=== PATIENT | female | born 1960 | race Caucasian/White ===

== ENCOUNTER → 2017-04-18 | Outpatient (CLI) | payer OTHER | LOC: MC.RAD 03-21 11:40 | DX: Z12.31 Encounter for screening mammogram for malignant neoplasm of breast (principal) ==

== ENCOUNTER → 2018-08-18 | Outpatient (CLI) | payer OTHER | LOC: MC.RAD 06-09 11:40 | DX: Z12.31 Encounter for screening mammogram for malignant neoplasm of breast (principal) ==

== ENCOUNTER → 2019-11-13 | Outpatient (CLI) | payer OTHER | LOC: MC.RAD 07:00 | DX: Z12.31 Encounter for screening mammogram for malignant neoplasm of breast (principal) ==

== ENCOUNTER 2022-01-06 20:00 | Inpatient (IN) | payer OTHER ==
[~2022-01-06] VITALS: Ht 172.7 cm; Wt 163.2 kg
[2022-01-06 20:55] LABS: HEMOGLOBIN 11.5 g/dl (12.5-16.0); MEAN CELL VOLUME 100 fl (80.0-100.0); MEAN CORPUSCULAR HEMOGLOBIN 33 pg (27-31); MEAN CORPUSCULAR HGB CONC 34 g/dl (33.0-37.0); MEAN PLATELET VOLUME 9.5 fl (7.4-10.4); PLATELET COUNT 382 K/mm3 (130-400); RED BLOOD COUNT 3.44 M/mm3 (4.10-5.30); REDCELL DISTRIBUTION WIDTH-CV 22.8 % (11.5-14.5)
[2022-01-06 21:00] LABS: HEMATOCRIT 34.3 % (37.0-47.0)
[2022-01-06 21:02] LABS: INR 2.5 (0.8-3.0); PROTHROMBIN TIME 28.6 SECONDS (9.7-12.8)
[2022-01-06 21:05] LABS: PARTIAL THROMBOPLASTIN TIME 37.9 SECONDS (26.0-37.0)
[2022-01-06 21:09] LABS: COLLECTION METHOD CLEAN CATCH
[2022-01-06 21:10] LABS: ALBUMIN 2.1 gm/dL (3.4-4.8); BILIRUBIN,TOTAL 8.1 mg/dL (0.2-1.2); CREATININE, serum 1.59 mg/dL (0.57-1.11); POTASSIUM 4.4 mmol/L (3.5-4.5); TOTAL PROTEIN 6.6 gm/dL (6.2-8.1)
[2022-01-06 21:15] LABS: TROPONIN-I 0.021 ng/mL (0.00-0.033)
[2022-01-06 21:18] LABS: LYMPHOCYTE 6 % (20.0-51.0); NEUTROPHILS 87 % (42.0-75.2); PLATELET ESTIMATE NORMAL (NORMAL); TARGET CELLS 1+
[2022-01-06 21:19] LABS: HYPOCHROMIA 1+
[2022-01-06 21:33] LABS: MUCOUS Present (NOT PRESENT); PH 5 (5-8); URINE APPEARANCE Cloudy (CLEAR/HAZY); URINE BACTERIA Many /hpf (NONE SEEN); URINE BILIRUBIN Positive (NEGATIVE); URINE BLOOD Negative (NEGATIVE); URINE COLOR Amber (YELLOW); URINE GLUCOSE Negative (NEGATIVE); URINE KETONE Negative (NEGATIVE); URINE LEUKOCYTE ESTERASE Negative (NEGATIVE); URINE NITRATE Negative (NEGATIVE); URINE PROTEIN(semi-quant) Negative (NEGATIVE); URINE RBC 0-2 /hpf (0-2); URINE UROBILINOGEN >=4.0 (NEGATIVE)
[2022-01-07] VITALS (7 sets, daily range): BP systolic 115–142; BP diastolic 31–74; PULSE 92–117; TEMP 97.1–98.5
[2022-01-07] MEDS ORDERED: PERCOCET 325 MG1 TAB PO (00:16)
[2022-01-07] MEDS ORDERED: LUNESTA3 MG PO (00:17)
[2022-01-07] MEDS ORDERED: HCTZ 25MG TAB25 MG PO (00:18)
[2022-01-07] MEDS ORDERED: LIPITOR20 MG PO (00:18)
[2022-01-07] MEDS ORDERED: PRINIVIL40 MG PO (00:19)
--- NOTE | 2022-01-07 03:26 | NUR ---
PATIENT HAVING WEAKNESS WITH MULTIPLE FALLS PATIENT STATED SHE HASN'T BEEN ABLE TO WALK AND IS MOSTLY BEDREST EXCEPT FOR BOWEL AND BLADDER ELIMINATION IN WHICH SHE NEEDS EXTENSIVE ASSISTANCE. PATIENT DID STATE THAT SHE HAS HAD YELLOW TO SKINFOR THE PAST WEEK. PATIENT WAS STRAIGHT CATH DOWN IN ED AND URINE WAS SENT. NO URINE OUTPUT NOTED SINCE BEING ADMITTED TO MEDICAL UNIT. APPLIED MEPILEX TO COCCYX AND PURWIC IN PLACE TO AID WITH BLADDER ELIMINATION. PATIENT HAS SEVERAL EXCORIATED AREAS AND REDNESS TO ABD FOLDS AND BILAT LE FOLDS. PATIENT HAS VERY LARGE BRUISE NOTED TO RLQ. PATIENT IS VERY EDEMETOUS TO BILAT LE AND ABD AREA. LACTIC TRENDING DOWN FROM 6.0 TO 3.9. GAUDENCIO PRUETT STATED SHE WAS GOING TO HOLD OFF ON FLUIDS AT THIS TIME AND PATIENT WATER RESTRICTED OFFERING GATORADE OR JUICE AT THIS TIME. PATIENT CONTINUE WITH ABX THERAPY. PENDING PALLITIVE CONSULT AND ONCOCLOGY CONSULT.
--- NOTE | 2022-01-07 04:07 | NUR ---
Vancomycin Initial Dosing Pharmacy Note Ordering provider: Raymundo Vela MD Indication/duration: Empiric sepsis x 5 days Relevant comorbidities: HTN, newly diagnosed metastatic CA LABS: WBC = 31.2, SCr = 1.59 Recommendation: Will draw troughs and follow levels. Loading dose: 2.5 grams Maintenance dose: 1 gram every 12 hours Trough goal: 15-20 ug/mL
--- NOTE | 2022-01-07 04:22 | NUR ---
AROUND 0355 BLADDER SCANNED PATIENT DUE TO HER STATING SHE HAS TO VOID AND SHE HAS BEEN HOLDING IT. BLADDER SCAN SHOWED 145ML PUREWIC IN PLACE. PENDING VOID PATIENT WAS STRAIGHT CATH IN ED.
--- NOTE | 2022-01-07 05:54 | NUR ---
Spoke with this morning and updated on patient and plan of care. stated that he is flying to [place] today but will return to [place] later this evening. patient slept throughout shift, no urine output yet will inform oncoming shift of bladder scan and water restrictions. turning and repositioning encouraged throughout shift. no pain noted no s/s of sob or distress noted.
[2022-01-07 07:06] LABS: HEMOGLOBIN 10.5 g/dl (12.5-16.0); MEAN CELL VOLUME 99 fl (80.0-100.0); MEAN CORPUSCULAR HEMOGLOBIN 33 pg (27-31); MEAN CORPUSCULAR HGB CONC 34 g/dl (33.0-37.0); MEAN PLATELET VOLUME 9.7 fl (7.4-10.4); PLATELET COUNT 337 K/mm3 (130-400); RED BLOOD COUNT 3.14 M/mm3 (4.10-5.30); REDCELL DISTRIBUTION WIDTH-CV 23.2 % (11.5-14.5)
[2022-01-07 07:10] LABS: INR 2.6 (0.8-3.0); PROTHROMBIN TIME 29.6 SECONDS (9.7-12.8)
[2022-01-07 07:20] LABS: ANISOCYTOSIS 1+; LYMPHOCYTE 9 % (20.0-51.0); NEUTROPHILS 86 % (42.0-75.2); PLATELET ESTIMATE NORMAL (NORMAL); TARGET CELLS 2+
[2022-01-07 07:24] LABS: ALBUMIN 1.8 gm/dL (3.4-4.8); BILIRUBIN,TOTAL 7.2 mg/dL (0.2-1.2); CALCIUM 8.3 mg/dL (8.4-10.2); CREATININE, serum 1.45 mg/dL (0.57-1.11); MAGNESIUM 2.2 mg/dL (1.6-2.6); POTASSIUM 4.5 mmol/L (3.5-4.5); TOTAL PROTEIN 5.8 gm/dL (6.2-8.1)
--- NOTE | 2022-01-07 11:42 | NUR ---
Patient confused, keeps stating she needs to go pee. Patient has been informed multiple times that she has a purewick in place and can urinate. Patient states she is scared to do so. Bladder scan done and patient is retaining 233mL of urine at this time. Hospitalist notified and agreed to brandon if patient is retaining > 300mL of urine. Patient's family is currently at the bedside. Hospitalist went in to give update. Family asked questions, all answered.
--- NOTE | 2022-01-07 17:57 | NUR ---
Patient has remained confused/forgetful all day. Patient slept a majority of the day, but would occasionally wake up and yell for her or dog. Patient reoriented multiple times. This RN and the PCT have repositioned the patient multiple times as well. Pillows placed under both legs to keep them elevated, as they are very edematous. Patient has purewick in place, draining dark tea colored urine. Approx. 400mL currently in canister.
--- NOTE | 2022-01-07 23:18 | NUR ---
Pt alert to speech and oriented on entry this evening. Able to correctly state her name/birthday, place, and year. Pt appears to be drowsy, frequently in and out of sleep and falls asleep quickly. Pt reports pain when she is moved around, but denies pain at rest and did not want any pain medication. Pt ate about 25% of her dinner. Shift assessment performed. Medications administered as ordered and education provided. Pt has 3+ edema in the BLE and feet. 1+ edema noted in the arms. Abdomen is obese, but soft. Pt has multiple skin issues. Noted skin breakdown in the folds of the abdomen, the folds up the upper thighs, the folds of the lower legs, and between the legs. Applied inner dry to the folds with barrier cream to prevent further skin breakdown. Noted abraisons on the pt's elbows bilaterally. Scattered bruising noted on the BUE. Turned pt to apply barrier cream to her bottom/sacral area. Noted a mepelex dressing on the bottom. Dressing is covering an abraison on the pt's bottom. Placed a new purewick on the pt and cleaned the milo area. Pt has had minimal urine output, continuing to monitor output. Continuing to hold free water from pt, but continuing to offer other fluids freqently. Pt is unable to independently re-adjust in the bed. Will continue to turn pt every 2 hours. IV antibx continue per orders. VS stable. Pt reports no questions, will continue to monitor.
--- NOTE | 2022-01-08 03:14 | NUR ---
Pt has had only 250 ml of urine out. Bladder scanned pt and got 146 ml in bladder. Will continue to monitor urine output. Pt also reported pain. Administered prn roxicodone as ordered, will reassess pain.
[2022-01-08 04:20] VITALS: BP 115/65; PULSE 94; TEMP 97.6
--- NOTE | 2022-01-08 04:23 | NUR ---
Pt reported that she had no pain relief from the roxicodone. Attempted to reposition pt with assistance multiple times, and pt still reported pain in back and BLE. Pt awake and alert. Administered prn morphine. VS stable, will continue to monitor and reassess.
--- NOTE | 2022-01-08 05:04 | NUR ---
No adverse events overnight. Pt remained alert and oriented. Sleeping on and off, up until about 0300. Pt has been awake and reporting pain since 0300. Administered prn roxicodone around 0300 and pt reported no relief after 1 hour. Repositioned pt mutliple times, still no pain relief. Administered prn morphine around 0417, reassessed and pt was resting quietly. VS remain stable overnight. Minimal urine output noted, about 250 ml. Bladder scan showed only 146 ml in bladder. Encouraged pt to void. 3+ edema remains in the BLE. Legs are propped on pillows and we continued to reposition the pt every 2 hours. No free water overnight, but pt did have frequent sips of tea. Q4 neuro checks continue. Pt reports no questions this morning, will continue to monitor.
[2022-01-08 06:12] LABS: BASO % 0.1 % (0.0-2.0); GRAN # 19.6 K/mm3 (1.4-6.5); GRAN % 84.8 % (42.2-75.2); HEMOGLOBIN 10.9 g/dl (12.5-16.0); LYMPH # 1.8 K/mm3 (1.2-3.4); LYMPH % 7.9 % (20.0-51.0); MEAN CELL VOLUME 96 fl (80.0-100.0); MEAN CORPUSCULAR HEMOGLOBIN 33 pg (27-31); MEAN CORPUSCULAR HGB CONC 34 g/dl (33.0-37.0); MEAN PLATELET VOLUME 9.5 fl (7.4-10.4); MONO # 1.5 K/mm3 (0.1-0.6); MONO % 6.5 % (1.7-9.3); PLATELET COUNT 300 K/mm3 (130-400); RED BLOOD COUNT 3.32 M/mm3 (4.10-5.30)
[2022-01-08 06:13] LABS: HEMATOCRIT 31.9 % (37.0-47.0)
--- NOTE | 2022-01-08 06:19 | NUR ---
Pt continues to report pain in her back, she reuqested pain medicine when it became available again. Pt is awake and alert. Attmepted to reposition again will no relief. Administered prn morphine around 0618 for pain. Will reassess for pain relief.
--- NOTE | 2022-01-08 06:55 | NUR ---
Notified provider of critical value of 23.2. No changes at this time.
[2022-01-08 06:57] LABS: ALBUMIN 1.8 gm/dL (3.4-4.8); BILIRUBIN,TOTAL 7.3 mg/dL (0.2-1.2); CALCIUM 7.8 mg/dL (8.4-10.2); CREATININE, serum 1.41 mg/dL (0.57-1.11); POTASSIUM 4.4 mmol/L (3.5-4.5); TOTAL PROTEIN 5.4 gm/dL (6.2-8.1)
[2022-01-08 07:06] VITALS: BP 122/63; PULSE 92; TEMP 97.6
--- NOTE | 2022-01-08 08:00 | NUR ---
Patient remains forgetful. Family is at the bedside, family meeting has been done w/ palliative care. will be home tonight from [place] [facility]. Waiting for before any definite decisions are made. Frozen plasma not to be given until decision is made, per family request. Hospitalist notified of this. Purewick is still in place, patient does not have much urine output. Patient being repositioned frequently for comfort and to reduce pressure. Call light is w/in reach, but patient often yells out if she needs anything.
--- NOTE | 2022-01-08 10:38 | NUR ---
Met with patient, daughter? Yazmin, and patient's mother, Valerie. We discussed what the family has been told about probable cancer and the current treatment plan, specifically Dr. Maya's recommendation of a liver biopsy. We also discussed if the patient would want to go through with the biopsy and cancer treatment. Yazmin took notes and plans to talk with patient's , Dale. I gave the family my contact information and encouraged them to have Dale call me with any questions. He plans to be back in [facility]. I also offered to touch base with him tomorrow after he has time to visit his . Ramandeep RN at bedside throughout conversation as well.
--- NOTE | 2022-01-08 10:54 | NUR ---
Received call from patient's , Dale. He confirmed that he will be back in [facility] and plans to visit the patient. I also offered clarification on the current treatment plan and to answer any questions he had. He states any decision is the patient's if she is able to make it. I informed him that she was falling asleep during our conversation today so she may need him to speak for her. He stated they have had conversations in the past about her wishes but that he will talk with her again when he is visiting. Plan to touch base tomorrow after they get a chance to talk.
[2022-01-08 11:03] VITALS: BP 99/60; PULSE 95; TEMP 97.2
--- NOTE | 2022-01-08 13:29 | NUR ---
Patient retaining urine. 287mL of urine bladder scanned. Dr. Vela gave the verbal order to place the brandon.
--- NOTE | 2022-01-08 14:19 | NUR ---
Supervisor Shearing collaborated with Palliative RN, Kimi who advised she met with patient to discuss goals of care and patient plans to talk about this with her , Dante (ph#[phone]) when he arrives from out of town [facility]. SW met with patient to complete initial intake. Patient lives in [place] with her and sees Dr. Braxton for primary care. Patient obtains medications from [facility] with no difficulites and does not normally use any DME. Patient reports she is normally independent with ADLS. Patient states she believes she may have DPOA-HC, however she is unsure. SW will continue to follow for discharge planning needs. Discharge Planning: Palliative Consult
--- NOTE | 2022-01-08 14:39 | NUR ---
Howard placed. 825mL tea-colored urine drained with placement. Bed bath given.
[2022-01-08 15:10] VITALS: BP 111/49; PULSE 96; TEMP 97.6
[2022-01-08 20:25] VITALS: BP 118/56; PULSE 100; TEMP 97.6
--- NOTE | 2022-01-08 23:11 | NUR ---
Patient is resting in bed, alert but partially oriented. Pt forgetful, asked my name several times. Follows comands. Catheter brandon in place, floresita output. Assessment completed,medicatons provided. No other needs at this time. Continue monitoring.
[2022-01-08 23:35] VITALS: BP 118/53; PULSE 101; TEMP 97.5
[2022-01-09 04:16] VITALS: BP 106/56; PULSE 100; TEMP 97.8
--- NOTE | 2022-01-09 05:50 | NUR ---
Patient has been stable along the night. VS WNL. HR in 100's. Seems uncomfortable but denies pain. Refuses to drink juice, broth, gatorade. She just accept pepsi or sprite. She follows comands and answers questions but she is forgetful. Report will be given to day RN.
[2022-01-09 06:15] LABS: HEMOGLOBIN 10.5 g/dl (12.5-16.0); MEAN CELL VOLUME 97 fl (80.0-100.0); MEAN CORPUSCULAR HEMOGLOBIN 34 pg (27-31); MEAN CORPUSCULAR HGB CONC 35 g/dl (33.0-37.0); MEAN PLATELET VOLUME 10.3 fl (7.4-10.4); PLATELET COUNT 279 K/mm3 (130-400); RED BLOOD COUNT 3.11 M/mm3 (4.10-5.30); REDCELL DISTRIBUTION WIDTH-CV 22.6 % (11.5-14.5)
[2022-01-09 06:16] LABS: HEMATOCRIT 30.3 % (37.0-47.0)
[2022-01-09 06:17] LABS: ALBUMIN 1.7 gm/dL (3.4-4.8); BILIRUBIN,TOTAL 7.5 mg/dL (0.2-1.2); CALCIUM 7.6 mg/dL (8.4-10.2); CREATININE, serum 1.33 mg/dL (0.57-1.11); POTASSIUM 4.6 mmol/L (3.5-4.5); TOTAL PROTEIN 5.8 gm/dL (6.2-8.1)
[2022-01-09 06:19] LABS: INR 2.3 (0.8-3.0); PROTHROMBIN TIME 26.8 SECONDS (9.7-12.8)
[2022-01-09 07:07] LABS: BAND 2 % (0-10); LYMPHOCYTE 3 % (20.0-51.0); METAMYELOCYTE 1 % (0-0); NEUTROPHILS 88 % (42.0-75.2); PLATELET ESTIMATE NORMAL (NORMAL)
[2022-01-09 07:08] LABS: POIKILOCYTOSIS 2+; POLYCHROMASIA 1+; TARGET CELLS 2+
[2022-01-09 07:54] VITALS: BP 112/62; PULSE 121; TEMP 98.8
--- NOTE | 2022-01-09 09:44 | NUR ---
PATIENT NOTED TO HAVE SEVERE LOWER BODY EDEMA. SWELLING NOTED FROM FEET UP TO PELVIC AREA. TIGHT NOT PITTING.
--- NOTE | 2022-01-09 11:00 | NUR ---
Met with patient's Dale, sister Yazmin, and mother Valerie first at bedside then in my office. They have decided to proceed with hospice at [facility]. I have arranged a visit for them at 1300 today. They are aware. Referal sent to Teresa at [facility] as well and SW and care team updated on decision for comfort care and DNR here until [facility] accepts. Questions answered as best I could and offered to assist as needed.
--- NOTE | 2022-01-09 13:05 | NUR ---
First visit from the commissioning specialist. No needs right now.
--- NOTE | 2022-01-09 13:57 | NUR ---
Departmental Secretary collaborated with Kimi Palliative RN who advised she met with patient and family. Patient has decided to go comfort care and wants to pursue hospice at the [facility]. Kimi faxed referral to Teresa at [facility]. RADHA contacted Teresa who advised she will review referral and follow up. Teresa advised they cannot accept today, however will evaluate how soon they can admit. Family to tour at 1300. RADHA met with patient and patient's following their tour. Dante advised it went well and patient has been assigned to room 10. RADHA advised Dante that as soon as [facility] can accept, RADHA will coordinate discharge to include EMS transport. Discharge Plan: [facility]
--- NOTE | 2022-01-09 15:13 | NUR ---
Teresa at [facility] advised they can accept patient tomorrow and would like transport set up for 1100. RADHA contacted [facility] and scheduled grain picker time for 1100. RADHA notified Hospitalist and GAUTAM Bolden of discharge plan. RADHA also met with patient and her to update them on plan for discharge tomorrow. Both are in agreement. Dante would like to stay the night with patient. RADHA confirmed with GAUTAM Paniagua Gastrointestinal Technician that this was acceptable. Discharge Plan: [facility] tomorrow
--- NOTE | 2022-01-09 21:33 | NUR ---
Patient alert, disoriented. Denies pain and discomfort. Peripheral INT to right hand. Denie SOB and dyspnea. LS CTA in upper lobes, diminished in lower. HRR. BSAx4. Indwelling brandon catheter draining floresita, clear urine via dependent drainage. Patient has generalized edema. 2+ BUE, 3+ BLE. Excoriation to groin/abdominal folds. Perineal hygiene care provided, cloth placed in folds. In bed with call light within reach. Bed alarm on.
--- NOTE | 2022-01-10 05:33 | NUR ---
Patient recieved PRN Morphine once this shift shift for pain. Husand with patient most of the night. Voices no questions, needs, or concerns at this time. Patient in bed with call light within reach. Bed alarm on.
[2022-01-10] MEDS ORDERED: ATIVAN 1MG T1 MG/TAB PO (09:35)
[2022-01-10] MEDS ORDERED: ROXANOL 20MG20 MG/ML SL (09:35)
[2022-01-10] MEDS ORDERED: SYSTANE 0.4%-0.1 SOL OU (09:35)
[2022-01-10] MEDS ORDERED: TRANSDERM-0.5 MG/21 TD (09:35)
[2022-01-10] MEDS ORDERED: DULCOLAX S10 MG/SUPP RC (09:35)
[2022-01-10] MEDS ORDERED: LUNESTA3 MG PO (09:36)
[2022-01-10] MEDS ORDERED: ZOFRAN ODT4 MG PO (09:36)
--- NOTE | 2022-01-10 10:06 | NUR ---
Follow-up visit; Patient, her mother and sister and Server Support Technician offered prayer together for Freda. Server Support Technician offered comfort and God's blessings to family as well.
--- NOTE | 2022-01-10 10:45 | NUR ---
Playground Aide contacted [facility] and confirmed 1100 transport time. SW placed completed EMS transfer forms on patient's chart. SW attended clinical rounds with the team then met with the patient and family to confirm transport time. RADHA contacted Teresa at [facility] and faxed discharge orders, negative covid results, and DNR order. Discharge Plan: [facility] today
--- NOTE | 2022-01-10 11:10 | NUR ---
PATIENT DEPARTED FACILITY WITH EMS AT THIS TIME. IN STABLE CONDITION.
== END 2022-01-10 11:10 | disposition hospice, inpatient (51) | DRG 754 ==
LOC: COL.ER 20:00 → MEDICAL 21:37
PROVIDERS: Emergency Medicine; Student in an Organized Health Care Education/Training Program; ADMIT Family Medicine
DX: C56.9 Malignant neoplasm of unspecified ovary (principal); G93.41 Metabolic encephalopathy; C78.02 Secondary malignant neoplasm of left lung; C78.01 Secondary malignant neoplasm of right lung; C78.7 Secondary malignant neoplasm of liver and intrahepatic bile duct; C79.51 Secondary malignant neoplasm of bone; C78.6 Secondary malignant neoplasm of retroperitoneum and peritoneum; N17.9 Acute kidney failure, unspecified; E87.1 Hypo-osmolality and hyponatremia; D68.9 Coagulation defect, unspecified; E87.2 Acidosis; R65.10 Systemic inflammatory response syndrome (SIRS) of non-infectious origin without acute organ dysfunction; I10 Essential (primary) hypertension; E78.5 Hyperlipidemia, unspecified; D64.9 Anemia, unspecified; R39.15 Urgency of urination; Z87.891 Personal history of nicotine dependence; Z51.5 Encounter for palliative care
CPT/HCPCS: 99223-AI; 99232-AI; 99233-AI; J0692; J1940; J2060; J2270; J3370; J7040; J7050

== ENCOUNTER → 2022-01-06 | Emergency (ER) | payer OTHER ==
[~2022-01-06] MED LIST: ATIVAN 1MG T1 MG/TAB PO; DULCOLAX S10 MG/SUPP RC; HCTZ 25MG TAB25 MG PO; LIPITOR20 MG PO; LUNESTA3 MG PO; PERCOCET 325 MG1 TAB PO; PRINIVIL40 MG PO; ROXANOL 20MG20 MG/ML SL; SYSTANE 0.4%-0.1 SOL OU; TRANSDERM-0.5 MG/21 TD; ZOFRAN ODT4 MG PO
== END ==
LOC: COL.ER 19:45
DX: Z72.89 Other problems related to lifestyle (principal)